=== PATIENT | female | born 1970 | race African-American/Black ===

== ENCOUNTER 2016-07-25 16:20 | Emergency (ER) | payer MEDICAID ==
[~2016-07-25] VITALS: Ht 152.4 cm; Wt 91.6 kg
[2016-07-25 17:39] VITALS: BP 136/84
== END 2016-07-25 17:40 | disposition home or self-care (01) ==
LOC: ER 16:22
DX: M25.562 Pain in left knee (principal); I10 Essential (primary) hypertension; I47.1 Supraventricular tachycardia; K85.90 Acute pancreatitis without necrosis or infection, unspecified; Z88.8 Allergy status to other drugs, medicaments and biological substances
CPT/HCPCS: 29505; 73564; 93971; 99284; A4606; Z7610

== ENCOUNTER 2021-11-05 23:52 | Inpatient (IN) | payer MEDICAID ==
[~2021-11-05] VITALS: Ht 154.9 cm; Wt 77.1 kg
--- NOTE | 2021-11-06 00:06 | NUR ---
[id number] FROM HOME FOR ALTERED MENTAL STATUS - NON VERBAL LKWT 2145. PT AXO X4 AND AMBULATORY AT BASELINE, BUT WAS FOUND BY FAMILY AT APROXIMATELY 2300 NOT RESPONDING TO STIMULI AND GAZING WITHOUT TRACKING. UPON EVAL PT ORIENTED XO NOT FOLLOWING COMMANDS OR RESPONDING TO STIMULI, NOT TRACKING, AND EXHIBTING WEAKNESS TO ALL EXTREMITIES. NO AIRWAY COMPROMISE NOTED SATTING 99% RA. CHANGED INTO GOWN AND V/S WNL. AT BEDSIDE FOR EVAL.
[2021-11-06] MEDS ORDERED: ONDANSETRON HCL/PF 4 MG/2 ML VIAL ONE ×2 (00:09→01:10)
--- NOTE | 2021-11-06 00:09 | NUR ---
CODE STROKE ACTIVATED
--- NOTE | 2021-11-06 00:21 | NUR ---
POC BS 103
--- NOTE | 2021-11-06 00:21 | NUR ---
PT TAKEN TO CT VIA KAYLEIGH
--- NOTE | 2021-11-06 00:29 | NUR ---
SPOKE WITH PT'S GRAND DAUGHTER OVER THE PHONE. ACCORDING TO HER. SHE COMPLAINED OF ABDOMINAL PAIN AND VOMMING @ 2145. PT WAS NOTED ALTERED @ 2310 BY THE GRAND DAUGHTER AND THE LAST TIME SHE SAW HER NORMAL WAS AT 2305. WAS MADE AWARE.
[2021-11-06] MEDS ORDERED: ONDANSETRON HCL/PF 4 MG/2 ML VIAL IV ONE ×2 (00:30→01:30)
--- NOTE | 2021-11-06 00:33 | NUR ---
PT RETURNED TO ER BED [address]
[2021-11-06] MEDS ORDERED: IOHEXOL-350 100 ML VIAL IV ONE (00:37)
--- NOTE | 2021-11-06 00:37 | NUR ---
Zaki jamil in [facility] - 11/06/21 at 0108 by ROMEO security solutions engineer at bedside
[2021-11-06] MEDS ORDERED: IV NS 0.9% 250 ML IV ONE (00:38)
--- NOTE | 2021-11-06 00:38 | NUR ---
EMT AT PT'S BEDSIDE FOR EKG
--- NOTE | 2021-11-06 00:41 | NUR ---
BUDGET CONTROLLER AT PT'S BEDSIDE
--- NOTE | 2021-11-06 00:43 | NUR ---
DR BORREGO ON THE PHONE WITH [facility]
[2021-11-06 00:49] LABS: BASOPHILS % (AUTO) 0.4 % (0.0-2.0); EOSINOPHILS % (AUTO) 1.1 % (0.0-6.0); HEMATOCRIT 41 % (33-45); HEMOGLOBIN 13.7 g/dL (11.5-14.8); LYMPHOCYTES # (AUTO) 1.7 K/uL (0.8-4.8); LYMPHOCYTES % (AUTO) 21.2 % (20.0-44.0); MEAN CORPUSCULAR HGB CONC 33 g/dl (31.0-36.0); MEAN CORPUSCULAR VOLUME 96 fL (82-100); MONOCYTES # (AUTO) 0.6 K/uL (0.1-1.30); MONOCYTES % (AUTO) 7.1 % (2.0-12.0); NEUTROPHILS # (AUTO) 5.6 K/uL (1.8-8.9); NEUTROPHILS % (AUTO) 70.2 % (43.0-81.0); PLATELET COUNT (AUTO) 319 K/uL (150-450)
--- NOTE | 2021-11-06 01:02 | NUR ---
COVID ANTIGEN SWAB COLLECTED AND SENT TO LAB
[2021-11-06 01:04] LABS: CALCIUM, SERUM 8.5 mg/dL (8.5-10.1); CARBON DIOXIDE 31 mmol/L (21-32); CHLORIDE 99 mmol/L (98-107); CREATININE 0.9 mg/dL (0.6-1.3); GLUCOSE 96 mg/dL (74-106); UREA NITROGEN, BLOOD 13 mg/dL (7-18)
[2021-11-06 01:06] LABS: ALBUMIN 3.5 g/dL (3.4-5.0); BILIRUBIN,DIRECT 0.2 mg/dL (0.0-0.2)
--- NOTE | 2021-11-06 01:07 | NUR ---
PT AWAKE AND ALERT X4 ANSWERS ALL QUESTIONS APPROPRIATELY AND PERFORMS ALL TASKS APPROPRIATELY WITHOUT NOTED DEFECITS. 5/5 STRENGTH TO ALL EXTREMTIES WITH GOOD MOTOR CONTROL. PASSED SWALLOW EVAL. PT BREATHING EVEN AND UNLABORED. V/S REMAIN WNL.
[2021-11-06 01:10] LABS: SODIUM SERUM 137 mmol/L (136-145)
[2021-11-06 01:12] LABS: POTASSIUM 2.7 mmol/L (3.5-5.1)
[2021-11-06] MEDS ORDERED: POTASSIUM CL. PREMIX PERIPHER. 50 ML ONE ×4 (01:33→05:02)
[2021-11-06] MEDS ORDERED: POTASSIUM CHLORIDE 10 MEQ/50 ML PREMIXED IVPB FOR PERIPHERAL LINE IV ONE (02:00)
--- NOTE | 2021-11-06 02:07 | NUR ---
Zaki jamil in [facility] - 11/06/21 at 0207 by RAUDEL TWAN PADILLA
--- NOTE | 2021-11-06 02:11 | NUR ---
SPOKE WITH EBONI, FORM BUILDING SUPERVISOR FOR CLINICALS. PT IS AUTHORIZED TO STAY. VERBAL AUTH RECEIVED.
[2021-11-06] MEDS ORDERED: MAGNESIUM HYDROXIDE 30 ML UDC PO PRN (03:30)
[2021-11-06] MEDS ORDERED: MAG HYDROX/AL HYDROX/SIMETH 30 ML UDC PO PRN (03:30)
[2021-11-06] MEDS ORDERED: LEVETIRACETAM (500MG) 1,000 MG in IV NS 0.9% 100 ML IV ONE (03:30)
[2021-11-06] MEDS ORDERED: ONDANSETRON HCL/PF 4 MG/2 ML VIAL IVP PRN (03:30)
[2021-11-06] MEDS: ACETAMINOPHEN 325 MG TABLET PO PRN ×2 (04:34→15:24)
--- NOTE | 2021-11-06 05:02 | NUR ---
CALLED FOR REPORT. RN WILL RETURN CALL.
--- NOTE | 2021-11-06 05:20 | NUR ---
REORT GIVEN TO DONNA
--- NOTE | 2021-11-06 05:33 | NUR ---
PT TRANSPORTED TO ROOM 308 ON CREDIT UNION TELLER PER [facility] SIN STABLE CONDITION
[2021-11-06] MEDS ORDERED: METO50TA16 PO (05:42)
[2021-11-06] MEDS ORDERED: HYDR12.55 PO (05:42)
[2021-11-06] MEDS ORDERED: LEVETIRACETAM (500MG) 500 MG/5 ML VIAL IV ONE (05:57)
--- NOTE | 2021-11-06 06:00 | NUR ---
BAIL BONDSMAN NOTES: RECEIVED PATIENT VIA GURNEY ON STABLE CONDITION, AT 0530AM PLACED IN BED COMFORTABLY, PATIENT IS A/OX4 ABLE TO MAKE NEEDS KNOWN, AMBULATORY ON TELE MONITOR- SR-[id number], V/S ARE WNR, ON ROOM AIR SATURATING WELL, NO SOB WAS OBSERVED, PATIENT WAS NOT COMPLAINING OF ANY ABD PAIN, NEGATIVE WITH NAUSEA AND VOMITING , SKIN ASSESSMENT DONE NO SKIN ISSUE WAS OBSERVED, PERSONAL BELONGINGS DOCUMENTED, AND SIGNED, PATIENT WAS ORIENTED TO PLACE REMIND TO USE CALL LIGHTS WHEN NEEDED ASSISTANCE, PATIENT KEPT CLEAN AND DRY ALL NEEDS MET ENDORSE TO INCOMING SHIFT
[2021-11-06] MEDS: IV NS 0.9% 1,000 ML IV PRN ×2 (06:05→21:19)
[2021-11-06 06:37] VITALS: BP 144/91
--- NOTE | 2021-11-06 07:49 | NUR ---
AUTOMOTIVE SALESPERSON OPENING NOTE Patient in bed, awake. A/O x 4, able to make needs known. On room air, breathing evenly and unlabored. No SOB or s/s of distress noted. IV access on SANJIV #20 infusing NS at 75 ml/hr. On tele monitoring showing SR, HR 79. Safety precautions in place: bed in low, locked position; siderails up x 2; call light within reach. Will continue to monitor.
[2021-11-06 08:00] VITALS: BP 105/60
--- NOTE | 2021-11-06 08:09 | NUR ---
RN NOTE Per labelling machine operator, first loading dose of Keppra given at 0605. Called pharmacy to verify to hold the next Keppra dose schedule for 0900. Per pharmacy, they will adjust the timing of medication.
[2021-11-06] MEDS: LEVETIRACETAM SOL (5 ML) 100 MG/ML UDC PO SCH ×2 (08:11→21:03)
[2021-11-06] MEDS: ENOXAPARIN SODIUM 40 MG/0.4 ML DISP.SYRIN SQ SCH (08:33)
[2021-11-06 10:27] LABS: CHOLESTEROL 168 mg/dL (<200); HDL CHOLESTEROL 71 mg/dL (40-60); LDL 79 mg/dL (0-99); TRIGLYCERIDES 219 mg/dL (30-150)
[2021-11-06] MEDS: ASPIRIN 81 MG TAB.CHEW PO SCH (10:54)
[2021-11-06 12:00] VITALS: BP 114/71
--- NOTE | 2021-11-06 15:00 | NUR ---
RN NOTE Patient's IV access on ALEXANDRA dislodged, IV re-inserted on LFA #22. Flushes well
--- NOTE | 2021-11-06 15:24 | NUR ---
RN NOTE Patient complained of headache. PRN Tylenol 650 mg given. Will continue to monitor.
[2021-11-06 16:00] VITALS: BP 111/69
--- NOTE | 2021-11-06 18:50 | NUR ---
FREIGHT UNLOADER CLOSING NOTE Patient in bed, awake. A/O x 4, able to make needs known. On room air, breathing evenly and unlabored. No SOB or s/s of distress noted. IV access on RFA #22 infusing NS at 75 ml/hr. On tele monitoring showing SR, HR 75. All needs attended to. Due meds given. Patient denies any pain or discomfort at this time. Safety precautions maintained: bed in low, locked position; siderails up x 2; call light within reach. Will endorse to night coordinator nurse for RAISA.
--- NOTE | 2021-11-06 19:34 | NUR ---
WAD IMPREGNATOR OPENING NOTE Patient in bed, awake. A/O x 4, able to make needs known. On room air, breathing evenly and unlabored. No SOB or s/s of distress noted. IV access on RFA #22 infusing NS at 75 ml/hr. On tele monitoring showing SR, HR 75. All needs attended to. Patient denies any pain or discomfort at this time. Safety precautions maintained: bed in low, locked position; siderails up x 2; call light within reach.
[2021-11-06 20:00] VITALS: BP 117/64
[2021-11-06] MEDS ORDERED: ATORVASTATIN 10 MG TABLET PO SCH (22:00)
[2021-11-07] VITALS: BP 127/71
[2021-11-07 04:00] VITALS: BP 123/72
[2021-11-07 05:55] LABS: BASOPHILS # (AUTO) 0.1 K/uL (0.0-0.2); BASOPHILS % (AUTO) 1.3 % (0.0-2.0); EOSINOPHILS % (AUTO) 6.2 % (0.0-6.0); HEMATOCRIT 38 % (33-45); HEMOGLOBIN 12.6 g/dL (11.5-14.8); LYMPHOCYTES # (AUTO) 2.2 K/uL (0.8-4.8); LYMPHOCYTES % (AUTO) 36.8 % (20.0-44.0); MEAN CORPUSCULAR HGB CONC 33 g/dl (31.0-36.0); MEAN CORPUSCULAR VOLUME 96 fL (82-100); MONOCYTES # (AUTO) 0.6 K/uL (0.1-1.30); MONOCYTES % (AUTO) 9.3 % (2.0-12.0); NEUTROPHILS # (AUTO) 2.8 K/uL (1.8-8.9); NEUTROPHILS % (AUTO) 46.4 % (43.0-81.0); PLATELET COUNT (AUTO) 286 K/uL (150-450); RED BLOOD CELL COUNT(AUTO) 3.99 MIL/uL (4.0-5.2); WHITE BLOOD COUNT (AUTO) 6.1 K/uL (4.3-11.0)
[2021-11-07 06:17] LABS: CALCIUM, SERUM 7.8 mg/dL (8.5-10.1); CREATININE 0.8 mg/dL (0.6-1.3); MAGNESIUM 1.6 mg/dL (1.8-2.4); PHOSPHORUS 3.2 mg/dL (2.5-4.9); POTASSIUM 2.9 mmol/L (3.5-5.1)
--- NOTE | 2021-11-07 06:46 | NUR ---
ENGINEERING SURVEYOR CLOSING NOTE Patient in bed, awake. A/O x 4, able to make needs known. On room air, breathing evenly and unlabored. No SOB or s/s of distress noted. IV access on RFA #22 infusing NS at 75 ml/hr. On tele monitoring showing SR, HR 75. All needs attended to. Patient denies any pain or discomfort at this time. Safety precautions maintained: bed in low, locked position; siderails up x 2; call light within reach.
--- NOTE | 2021-11-07 07:40 | NUR ---
NURSING AGENCY MANAGER OPENING NOTE Patient in bed, awake. A/O x 4, able to make needs known. On room air, breathing evenly and unlabored. No SOB or s/s of distress noted. IV access on RFA #22 infusing NS at 75 ml/hr. On tele monitoring showing SR, HR 63. Safety precautions in place: bed in low, locked position; siderails up x 2; call light within reach. Will continue to monitor.
[2021-11-07] MEDS: LEVETIRACETAM SOL (5 ML) 100 MG/ML UDC PO SCH (08:37)
[2021-11-07] MEDS: ASPIRIN 81 MG TAB.CHEW PO SCH (08:37)
[2021-11-07] MEDS: ENOXAPARIN SODIUM 40 MG/0.4 ML DISP.SYRIN SQ SCH (08:41)
[2021-11-07] MEDS ORDERED: MAGNESIUM OXIDE 400 MG TABLET PO ONE ×2 (09:00→11:00)
[2021-11-07] MEDS ORDERED: POTASSIUM CHLORIDE 20 MEQ TAB.PRT.SR PO SCH (10:00)
[2021-11-07] MEDS ORDERED: ATOR20TA PO (10:57)
[2021-11-07] MEDS ORDERED: TEMA30CA PO (10:57)
[2021-11-07] MEDS ORDERED: ASPI-1169 PO (10:57)
[2021-11-07] MEDS ORDERED: POTASSIUM CHLORIDE 20 MEQ POWDER PACKET PO ONE (11:00)
--- NOTE | 2021-11-07 13:20 | NUR ---
DISCHARGE NOTE Received order for discharge. Patient is A/O x 4, able to make needs known. Stable on room air, breathing evenly and unlabored. No SOB or s/s of distress noted. Discharge instructions given both verbally and in written form, patient verbalized understanding. All belongings accounted for, belonging sheet signed. Patient denies any pain or discomfort at this time. IV access removed, catheter tip intact. Pressure dressing applied, no signs of bleeding noted. ID band removed. Patient left in stable condition with daughter via private car.
[2021-11-07] MEDS ORDERED: LEVETIRACETAM (250 MG) 250 MG TABLET PO SCH (21:00)
== END 2021-11-07 13:20 | disposition home or self-care (01) | DRG 47 ==
LOC: ER 23:52 → TELE 11-06 05:13
PROVIDERS: ADMIT Nurse Practitioner Acute Care; ATTEND Nurse Practitioner Acute Care
DX: G45.9 Transient cerebral ischemic attack, unspecified (principal); G93.41 Metabolic encephalopathy; E66.9 Obesity, unspecified; G40.909 Epilepsy, unspecified, not intractable, without status epilepticus; E87.6 Hypokalemia; I10 Essential (primary) hypertension; Z86.79 Personal history of other diseases of the circulatory system; Z98.890 Other specified postprocedural states; Z88.8 Allergy status to other drugs, medicaments and biological substances; Z87.891 Personal history of nicotine dependence; Z79.899 Other long term (current) drug therapy; Z68.32 Body mass index [BMI] 32.0-32.9, adult; Z87.81 Personal history of (healed) traumatic fracture; V89.2XXS Person injured in unspecified motor-vehicle accident, traffic, sequela; E78.5 Hyperlipidemia, unspecified; E83.42 Hypomagnesemia; K86.1 Other chronic pancreatitis; R29.702 NIHSS score 2; Z91.81 History of falling
CPT/HCPCS: 36415; 70450-TC; 70496-TC; 70498-TC; 71045-TC; 80048-TC; 80061-TC; 80076-TC; 83735-TC; 84100-TC; 84484-TC; 85025-TC; 85730-TC; 86850-TC; 87081-TC; 95819-TC; 97116-TC; 97530-TC; C9803; G0378; J1650; J1953; J2405; J3480; J7030; J7050; Q9967